=== PATIENT | female | born 1980 | race American Indian/Alaskan Native ===

== ENCOUNTER 2017-10-07 02:42 | Emergency (ER) | payer SELFPAY ==
[2017-10-07 02:51] VITALS: BP 121/80
--- NOTE | 2017-10-07 07:21 | Emergency Department Report ---
HPI - General Chief Complaint: Urogenital-Female Time Seen by Provider: 10/07/17 07:14 - HPI HPI: 37-year-old female presents to the emergency department from home with complaint of a 5 day history of burning with urination. When she left a urine sample here this morning she also thought it had a red tinge to it could be some blood. She denies any fever, back pain, nausea, vomiting. She has not taken anything for her symptoms prior to presentation. She denies any significant past medical history. She has a past surgical history of a previous . 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 ED Past Medical Hx - Past Medical History Previous Medical History?: No - Surgical History Past Surgical History?: Yes Additional Surgical History: - Social History Smoking Status: Never Smoker Substance Use Type: Alcohol - Medications Home Medications: Home Medications Medication Instructions Recorded Confirmed Last Taken Type Pseudoephed/Cod/Guaifen 5 ml PO TID #1 bottle 08/05/15 Unknown Rx [Robitussin DAC 10-100-30Mg/5Ml] Loratadine [Claritin] 10 mg PO DAILY #30 tablet 08/06/15 Unknown Rx Nitrofurantoin Monohyd/M-Cryst 100 mg PO BID #14 capsule 10/07/17 Unknown Rx [Macrobid 100 mg Capsule] Phenazopyridine [Pyridium] 100 mg PO TID #6 tablet 10/07/17 Unknown Rx ED Review of Systems ROS: Stated complaint: BURNING ON URINATION Other details as noted in HPI Comment: All other systems reviewed and negative Constitutional: denies: chills, fever Eyes: denies: eye pain, eye discharge, vision change ENT: denies: ear pain, throat pain Respiratory: denies: cough, shortness of breath, wheezing Cardiovascular: denies: chest pain, palpitations Gastrointestinal: denies: nausea, vomiting Genitourinary: dysuria, hematuria (questionable). denies: discharge Musculoskeletal: denies: back pain, joint swelling, arthralgia Skin: denies: rash, lesions Neurological: denies: headache, weakness, paresthesias Physical Exam - Physical Exam Vital Signs: Vital Signs 10/07/17 02:47 Temperature 98.5 F Pulse Rate 85 Blood Pressure 121/80 Physical Exam: GENERAL: The patient is well-developed well-nourished. HENT: Normocephalic. Atraumatic. Patient has moist mucous membranes. EYES: Extraocular motions are intact. Pupils equal reactive to light bilaterally. NECK: Supple. Trachea is midline. CHEST/LUNGS: Clear to auscultation. There is no respiratory distress noted. HEART/CARDIOVASCULAR: Regular. There is no tachycardia. There is no murmur. ABDOMEN: Abdomen is soft, nontender. Patient has normal bowel sounds. There is no abdominal distention. SKIN: Skin is warm and dry. NEURO: The patient is awake, alert, and oriented. The patient is cooperative. The patient has no focal neurologic deficits. The patient has normal speech. MUSCULOSKELETAL: There is no tenderness or deformity. There is no evidence of acute injury. ED Course Vital Signs 10/07/17 02:47 Temperature 98.5 F Pulse Rate 85 Blood Pressure 121/80 ED Medical Decision Making - Medical Decision Making Patient appears to have a significant urinary tract infection with greater than 180 white blood cells and red blood cells in the urine. Vital signs are stable including being afebrile. She was given a dose of Macrobid and Pyridium in the emergency department. She will get a prescription for both of these medications for home as well. She was given a referral for primary care and urology. We discussed how the hematuria may be secondary to the infection but also she may need further workup and evaluation by urology. She will return to the ER with any worsening of her symptoms or any acute distress. - Differential Diagnosis UTI, , pyelonephritis Critical Care Time: No Critical care attestation.: If time is entered above; I have spent that time in minutes in the direct care of this critically ill patient, excluding procedure time. ED Disposition Clinical Impression: UTI (urinary tract infection) Qualifiers: Urinary tract infection type: acute cystitis Hematuria presence: with hematuria Qualified Code(s): N30.01 - Acute cystitis with hematuria Hematuria Qualifiers: Hematuria type: unspecified type Qualified Code(s): R31.9 - Hematuria, unspecified Disposition: - TO HOME OR SELFCARE Is pt being admited?: No Condition: Stable Instructions: Urinary Tract Infection in Women (ED) Additional Instructions: Please follow up with a primary care physician in the next few days. I have given you a referral for a local urologist, Dr. Ortiz, to follow up regarding your urinary tract infection and blood in urine. Return to the emergency Department with any worsening of your symptoms or any acute distress. On top of the antibiotics, you have been prescribed a 2 day course of Pyridium which is supposed to help with bladder spasm and discomfort. This medication may make your urine and secretions appear orange or abnormally colored. Prescriptions: Nitrofurantoin Monohyd/M-Cryst [Macrobid 100 mg Capsule] 100 mg PO BID #14 capsule Phenazopyridine [Pyridium] 100 mg PO TID #6 tablet Referrals: DALILA LOOMIS MD [Primary Care Provider] - 3-5 Days JACQUELIN ORTIZ MD [Staff Physician] - 3-5 Days [facility] [Outside] - 3-5 Days Time of Disposition: 08:16
[2017-10-07 07:23] LABS: Bacteria,Urine 2+ /HPF (Negative); Bilirubin,Urine NEG (Negative); Blood,Urine LG (Negative); Ketones,Urine NEG (Negative); Leukocyte Esterase,Urine LG (Negative); Nitrite,Urine NEG (Negative); Urobilinogen,Urine < 2.0 mg/dL (<2.0)
[2017-10-07 07:26] LABS: RBC,Urine > 182.0 /HPF (0.0-6.0); WBC,Urine > 182.0 /HPF (0.0-6.0)
[2017-10-07] MEDS ORDERED: MACROBID PO ONE (07:48)
[2017-10-07] MEDS ORDERED: PYRIDIUM PO ONE (09:00)
[2017-10-08] MEDS ORDERED: NACL ONE (09:44)
== END 2017-10-07 09:24 | disposition home or self-care (01) ==
LOC: ED 02:42
DX: N30.01 Acute cystitis with hematuria (principal); Z98.890 Other specified postprocedural states
CPT/HCPCS: 81001; 81025; 99283

== ENCOUNTER 2018-02-03 13:30 | Emergency (ER) | payer OTHER ==
[2018-02-03 13:38] VITALS: BP 142/72
--- NOTE | 2018-02-03 15:54 | Emergency Department Report ---
Upper Extremity - HPI Upper Extremity: Right Forearm (pain after falling) Occurred When: 1 Day Mechanism: Fall Severity: severe (7/10) Symptoms: Yes Pain with Movement (right forearm), Yes Limited Range of Movement (right forearm), Yes Weakness (right forearm), Yes Swelling (right forearm and ulnar, medially), No Deformity, No Numbness, No Bruising/Ecchymosis, No Laceration or Abrasion Other History: Patient has status post falling last night. She said it was accidental she slipped and fell from ground level. She says she fell on her right forearm and she is having some swelling, pain to the site. Denies any numbness or tingling. Reports some weakness. Pain is 7 out of 10 and achy. Denies taking any pain medication. Injury is localized to right forearm. Denies any bruising, laceration or abrasions. Denies any head injury. Denies any back pain or neck pain. Denies any headache. Pain worse with movement and better with rest. <GUSTAVO MOSER A - Last Filed: 02/03/18 17:43> <BILL RUIZ P - Last Filed: 02/03/18 20:35> - HPI Chief Complaint: Extremity Injury, Upper Stated Complaint: RIGHT ARM INJURY/FALL Time Seen by Provider: 02/03/18 15:51 ED Review of Systems ROS: Stated complaint: RIGHT ARM INJURY/FALL Other details as noted in HPI Comment: All other systems reviewed and negative Constitutional: no symptoms reported Respiratory: no symptoms reported Cardiovascular: denies: chest pain, palpitations, dyspnea on exertion, edema, syncope, paroxysmal nocturnal dyspnea Gastrointestinal: denies: abdominal pain, nausea, vomiting Genitourinary: denies: dysuria, hematuria Musculoskeletal: joint swelling, arthralgia. denies: back pain, myalgia Skin: denies: rash Neurological: weakness. denies: headache, numbness, paresthesias, confusion, abnormal gait, vertigo <GUSTAVO MOSER A - Last Filed: 02/03/18 17:43> ROS: Stated complaint: RIGHT ARM INJURY/FALL Other details as noted in HPI <BILL RUIZ P - Last Filed: 02/03/18 20:35> ED Past Medical Hx - Past Medical History Previous Medical History?: No - Surgical History Past Surgical History?: Yes Additional Surgical History: - Family History Family history: no significant - Social History Smoking Status: Never Smoker Substance Use Type: Alcohol <GUSTAVO MOSER A - Last Filed: 02/03/18 17:43> <BILL RUIZ P - Last Filed: 02/03/18 20:35> - Medications Home Medications: Home Medications Medication Instructions Recorded Confirmed Last Taken Type Pseudoephed/Cod/Guaifen 5 ml PO TID #1 bottle 08/05/15 Unknown Rx [Robitussin DAC 10-100-30Mg/5Ml] Loratadine [Claritin] 10 mg PO DAILY #30 tablet 08/06/15 Unknown Rx Nitrofurantoin Monohyd/M-Cryst 100 mg PO BID #14 capsule 10/07/17 Unknown Rx [Macrobid 100 mg Capsule] Phenazopyridine [Pyridium] 100 mg PO TID #6 tablet 10/07/17 Unknown Rx HYDROcodone/APAP 5-325 [[place] 1 each PO Q6HR PRN #12 tablet 02/03/18 Unknown Rx 5/325] Ibuprofen [Motrin] 600 mg PO Q8H PRN #15 tablet 02/03/18 Unknown Rx Upper Extremity Exam - Exam General: Vital signs noted. No distress. Alert and acting appropriately. This is a 37-year-old female well-nourished well-developed in no acute distress. Head and Torso: Yes Neck Tenderness (supple, full range of motion and no C- spine tenderness. No lymphadenopathy), No HEENT Abnormality (normal exam), No Chest/Lungs Abnormality (CTAB, no chest wall tenderness. Normal work of breathing), No Abdominal Tenderness (soft, nontender to palpate in all quadrants and no guarding or rebound tenderness. Normal bowel sounds in all quadrants), No Back Tenderness (no vertebral tenderness to include thoracic and lumbar spine. No paraspinal tenderness.) Shoulder Exam: Yes Normal Range of Motion in Shoulder, No Shoulder Tenderness ( normal exam.), No Clavicle Tenderness (normal exam), No Shoulder Deformity, No AC Joint Tenderness Arm Exam: No Arm/Humerus Tenderness, No Arm Deformity Elbow: Yes Normal Range of Motion in Elbow (no joint effusion, crepitus, swelling or erythema.), No Elbow Tenderness, No Elbow Deformity Forearm: Yes Forearm Tenderness (forearm tender to palpate ulnar, medially. No bruising, abrasions or laceration. Mild swelling . Left forearm normal exam), Yes Pain with Pronation (right forearm), No Forearm Deformity, No Pain with Supination Wrist: Yes Normal ROM in Wrist (no swelling, or effusion.), No Wrist Tenderness , No Wrist Deformity, No Snuffbox Tenderness, No Pain with Axial Thumb Compression Hand: Yes Normal ROM in Digit(s), No Hand Tenderness, No Hand Deformity, No Digit Tenderness, No Digit(s) Deformity, No Tendon Dysfunction CMS Exam: Yes Normal Distal Pulses, Yes Normal Capillary Refill, Yes Normal Distal Sensation <GUSTAVO MOSER A - Last Filed: 02/03/18 17:43> - Exam General: Vital signs noted. No distress. Alert and acting appropriately. <BILL RUIZ P - Last Filed: 02/03/18 20:35> ED Course Vital Signs 02/03/18 13:35 Temperature 98.8 F Pulse Rate 92 H Respiratory 18 Rate Blood Pressure 142/72 O2 Sat by Pulse 99 Oximetry - Reevaluation(s) Reevaluation #1: 02/03/18 16:52 Patient received Toradol 60 mg IM in emergency room for pain to right forearm. Pain is not completely relieved. Reevaluation #2: 02/03/18 17:52 Patient with right ulnar fracture requiring splinting. Please refer to procedure note for splint in detail. She received acetaminophen 2 tablets by mouth prior to splinting. <GUSTAVO MOSER A - Last Filed: 02/03/18 17:43> Vital Signs 02/03/18 02/03/18 02/03/18 13:35 16:05 18:22 Temperature 98.8 F Pulse Rate 92 H 68 Respiratory 18 20 20 Rate Blood Pressure 142/72 O2 Sat by Pulse 99 99 Oximetry <BILL RUIZ P - Last Filed: 02/03/18 20:35> - Orthopedic Splinting/Casting Injury #1 Side: right Upper Extremity Injury Location: forearm Upper Extremity Immobilizer: sling/shoulder immobilize, sugartong splint Additional Comments: S/P OCL splint Pt with good color, movement and temperature to fingers of rt hand. <GUSTAVO MOSER - Last Filed: 02/03/18 17:43> ED Medical Decision Making - Radiology Data Radiology results: report reviewed, image reviewed interpreted by me: X-ray of right forearm reveal medial ulnar fracture. This is reviewed by myself and guiden. Final radiology report pending. - Medical Decision Making ED course: Patient status post fall last night with right forearm pain on ulnar side. X-ray report confirmed a patient with fracture to right forearm; mid ulnar. Patient with tenderness to palpation and mild swelling. She has pain with movement. Patient has no neurovascular compromise. Patient with sugar tong splint to right forearm and will good color, sensation, movement and temperature fingers of right hand. Please refer to procedure note for details and splinted. Patient given Toradol 60 mg IM in emergency room for pain and pain was not completely relieved so she was given Percocet 5/325 2 tablets by mouth prior to splinting. Patient and given information on x-ray report, right forearm fracture and splint care. She voiced understanding in and also need to follow-up. Patient discharged home with her family in stable condition with prescription for [place], Motrin and to follow-up with Dr. Pena and 2 days. <GUSTAVO MOSER A - Last Filed: 02/03/18 17:43> Critical care attestation.: If time is entered above; I have spent that time in minutes in the direct care of this critically ill patient, excluding procedure time. <GUSTAVO MOSER A - Last Filed: 02/03/18 17:43> Critical care attestation.: If time is entered above; I have spent that time in minutes in the direct care of this critically ill patient, excluding procedure time. <BILL RUIZ P - Last Filed: 02/03/18 20:35> ED Disposition Is pt being admited?: No Does the pt Need Aspirin: No <GUSTAVO MOSER A - Last Filed: 02/03/18 17:43> <BILL RUIZ P - Last Filed: 02/03/18 20:35> Disposition: -01 TO HOME OR SELFCARE Condition: Stable Instructions: Arm Fracture in Adults (ED), Splint Care (ED), Arthralgia (ED), RICE Therapy (ED), Fall Prevention (ED) Additional Instructions: Follow up with Dr. Pena, orthopedic doctor in 2 days. See Discharge instruction on splint care Take Motrin for mild to moderate pain and [place] for severe pain. Please do not drive or operate heavy machinery while taking [place] as this medication causes drowsiness See discharge instruction and rice protocol Prescriptions: HYDROcodone/APAP 5-325 [[place] 5/325] 1 each PO Q6HR PRN #12 tablet PRN Reason: severe pain Ibuprofen [Motrin] 600 mg PO Q8H PRN #15 tablet PRN Reason: mild to moderate pain Referrals: PRIMARY CAREMD [Primary Care Provider] - 2-3 Days PARI PENA MD [Staff Physician] - 02/05/18 Forms: Accompanied Note, Work/School Release Form(ED)
[2018-02-03] MEDS ORDERED: TORADOL IM ONE (15:56)
[2018-02-03] MEDS ORDERED: NORCO 5/325 PO ONE (17:43)
--- NOTE | 2018-02-03 18:53 | XRay Report ---
FINAL REPORT EXAM: XR FOREARM RT HISTORY: fall with rt fore arm pain TECHNIQUE: Four views right forearm Comparison: None FINDINGS: Normal bony mineralization. There is a transverse fracture through the distal right ulnar shaft with no significant offset. Near anatomic alignment. There may be an ulnar trochlear bone chip measuring 2 millimeters, incompletely assessed. Forearm soft tissue swelling. IMPRESSION: Transverse nondisplaced fracture distal ulnar shaft. Possible ulnar trochlear bone chip. If painful about the elbow, recommend dedicated elbow images.
== END 2018-02-03 18:25 | disposition home or self-care (01) ==
LOC: ED 13:30
DX: S52.601A Unspecified fracture of lower end of right ulna, initial encounter for closed fracture (principal); Z91.013 Allergy to seafood; W01.0XXA Fall on same level from slipping, tripping and stumbling without subsequent striking against object, initial encounter; Y93.89 Activity, other specified; Y92.89 Other specified places as the place of occurrence of the external cause; Y99.8 Other external cause status
CPT/HCPCS: 29125; 73090; 96372; 99283; J1885